=== PATIENT | female | born 1965 | race Caucasian/White ===

== ENCOUNTER 2024-08-08 19:17 | Emergency (ER) | payer BC ==
[2024-08-08] MEDS: Take Home: Doxycycline 100 MG Cap, 4 Cap Pack PO ONE (20:24)
[2024-08-08] MEDS: predniSONE 20 MG Tab PO ONE (20:24)
== END 2024-08-08 19:48 | disposition home or self-care (01) ==
LOC: VM.ED 19:17
DX: R22.0 Localized swelling, mass and lump, head (principal)
CPT/HCPCS: 99283; A9270-GY; J7512